=== PATIENT | female | born 1995 | race Caucasian/White ===

== ENCOUNTER 2020-12-28 19:02 | Emergency (ER) | payer BC ==
[~2020-12-28] VITALS: Ht 149.9 cm; Wt 81.7 kg
[2020-12-28 19:15] LABS: URINE BILIRUBIN NEGATIVE (Negative); URINE BLOOD NEGATIVE (Negative); URINE CLARITY CLEAR; URINE COLOR YELLOW; URINE GLUCOSE-RANDOM NEGATIVE (Negative); URINE KETONES NEGATIVE (Negative); URINE LEUKOCYTES NEGATIVE (Negative); URINE NITRITE NEGATIVE (Negative); URINE PROTEIN NEGATIVE (Negative); URINE SPECIFIC GRAVITY >= 1.030 (1.005-1.030); URINE UROBILINOGEN 0.2 E.U./dl (0.2-1.0)
[2020-12-28] MEDS ORDERED: AMOXICILLIN 50500 MG PO (21:19)
[2020-12-28 21:24] VITALS: BP 123/60
== END 2020-12-28 21:25 | disposition home or self-care (01) ==
LOC: M.ERS 19:02
PROVIDERS: Physician Assistant
DX: O23.31 Infections of other parts of urinary tract in pregnancy, first trimester (principal); N28.89 Other specified disorders of kidney and ureter; Z3A.01 Less than 8 weeks gestation of pregnancy